=== PATIENT | female | born 1985 | race Caucasian/White ===

== ENCOUNTER 2018-02-02 20:29 | Outpatient (CLI) | payer OTHER, SELFPAY ==
[2018-02-02 21:20] VITALS: BMI 27.8
[2018-02-02 21:42] LABS: Mucous, Urine 0 SEEN /hpf (<or=2+)
[2018-02-02 21:43] LABS: Color, Urine Yellow (Yellow); Glucose, Dipstick Normal (Normal); Ketone-Dipstick Negative (Negative); Leukocyte Esterase-Dipstick 25 /ul (Negative); Nitrite-Dipstick Negative (Negative); Occult Blood-Urine 250 /ul (Negative); Protein-Dipstick Negative (Negative); Urine Bilirubin Dipstick Negative (Negative); Urine Clarity Clear (Clear); Urine Urobilinogen Normal (Normal)
[2018-02-02 21:50] LABS: Bacteria 1+ /hpf (None Seen); Red Blood Cells-Urine 25-50 SEEN /hpf (0-5); Squamous Epithelial Cells - UA 0-5 SEEN /hpf (5-10); White Blood Cells 0-5 SEEN /hpf (0-5)
--- NOTE | 2018-02-03 16:53 | OB.TRI.NOTE ---
History of Present Illness Date of Service: 02/02/18 Was patient seen by the physician?: Yes Reason For Visit: R/O LABOR Date of Service: 02/02/18 Final ARACELI: 05/13/18 Final ARACELI Source: US <20 weeks Gestational age: 25 Weeks and 6 Days History of Present Illness: 33yo with c/o intermittent lower abdominal tightening and spotting with red blood in underwear and on wiping x 1. She has h/o cervical incompetence with 21 week loss in her first and has required a cerclage for all subsequent pregnancies including this one. Her prophylactic cerclage placement was uncomplicated. She had light bleeding for a short time after placement, but none since 14wga. She denies fever, chills, dysuria, hematuria, frequency, back pain, vaginal itching/burning/odor or discharge, leaking of fluid. + FM. She otherwise feels well. Denies coughing, constipation or straining, or recent trauma, fall or accident. She relates she often starts [place] at 18-20wga in prior pregnancies. Home Medications Medication Instructions Recorded Chloraphil 5 ml PO DAILY 11/01/17 Multivitamin [Multiple Vitamins] 1 each PO DAILY 11/01/17 [place]-3/Dha/Epa/Fish Oil [[place] 3 1 each PO DAILY 11/01/17 500 Softgel] [place] 17 gm PO DAILY 11/01/17 Allergies No Known Allergies Allergy (Verified 02/02/18 21:55) - Pertinent Past Medical History Pertinent Past Medical History: 21w - , demise, cervical insufficiency 3 FT with cerclage Physical Exam Vitals: AVSS General: Alert, Oriented x3, Cooperative, No apparent distress Lungs: Normal air movement Abdomen: Soft, Non Tender, Non-Distended, Gravid Extremities:: No edema Estimated gestational size: Appropriate for gestational size Cervix Dilation (cm): 0 - by speculum exam NST - FHR Rate Baby A Baseline: 140 Variability:: Moderate Accelerations:: 10 x 10 Decelerations:: Variable NST Reactive:: Appropriate for gestational age FHR Category:: Category I Uterine Activity:: 0/10 Impression/Plan Spotting complicating , second trimester -Speculum exam with cerclage suture noted rubbing ectropion and induced small amount of bleeding. No active bleed, no blood from os and os appeared close. -U/A negative for infection -D/C home
--- NOTE | 2018-02-03 17:07 | OB.TRI.HP_ITS ---
History of Present Illness Date of Service: 02/02/18 Was patient seen by the physician?: Yes Reason For Visit: R/O LABOR Date of Service: 02/02/18 Final ARACELI: 05/13/18 Final ARACELI Source: US <20 weeks Gestational age: 25 Weeks and 6 Days History of Present Illness: 33yo with c/o intermittent lower abdominal tightening and spotting with red blood in underwear and on wiping x 1. She has h/o cervical incompetence with 21 week loss in her first and has required a cerclage for all subsequent pregnancies including this one. Her prophylactic cerclage placement was uncomplicated. She had light bleeding for a short time after placement, but none since 14wga. She denies fever, chills, dysuria, hematuria, frequency, back pain, vaginal itching/burning/odor or discharge, leaking of fluid. + FM. She otherwise feels well. Denies coughing, constipation or straining, or recent trauma, fall or accident. She relates she often starts [place] at 18- 20wga in prior pregnancies. Home Medications Medication Instructions Recorded Chloraphil 5 ml PO DAILY 11/01/17 Multivitamin [Multiple Vitamins] 1 each PO DAILY 11/01/17 [place]-3/Dha/Epa/Fish Oil [[place] 3 1 each PO DAILY 11/01/17 500 Softgel] [place] 17 gm PO DAILY 11/01/17 Allergies No Known Allergies Allergy (Verified 02/02/18 21:55) - Pertinent Past Medical History Pertinent Past Medical History: 21w - , demise, cervical insufficiency 3 FT with cerclage Physical Exam Vitals: AVSS General: Alert, Oriented x3, Cooperative, No apparent distress Lungs: Normal air movement Abdomen: Soft, Non Tender, Non-Distended, Gravid Extremities:: No edema Estimated gestational size: Appropriate for gestational size Cervix Dilation (cm): 0 - by speculum exam NST - FHR Rate Baby A Baseline: 140 Variability:: Moderate Accelerations:: 10 x 10 Decelerations:: Variable NST Reactive:: Appropriate for gestational age FHR Category:: Category I Uterine Activity:: 0/10 Impression/Plan Spotting complicating , second trimester -Speculum exam with cerclage suture noted rubbing ectropion and induced small amount of bleeding. No active bleed, no blood from os and os appeared close. -U/A negative for infection -D/C home
== END 2018-02-02 22:30 | disposition home or self-care (01) ==
LOC: WPOUT 21:19 → WP 21:20
PROVIDERS: Visit Provider Obstetrics & Gynecology
DX: O26.852 Spotting complicating pregnancy, second trimester (principal); Z3A.25 25 weeks gestation of pregnancy
CPT/HCPCS: 59025; 59050; 81001; 87086; 87088; 99218; G0378

== ENCOUNTER → 2018-04-17 15:25 | Outpatient (CLI) | payer OTHER, SELFPAY ==
[2018-04-18 13:07] LABS: Group B Strep DNA By PCR POSITIVE (Negative); Probe Check PASS
== END ==
PROVIDERS: Visit Provider Obstetrics & Gynecology
DX: Z36.85 Encounter for antenatal screening for Streptococcus B (principal)
CPT/HCPCS: 87653

== ENCOUNTER 2018-05-07 09:05 | Inpatient (IN) | payer SELFPAY ==
--- NOTE | 2018-05-07 09:05 | DT_ITS ---
This patient was seen during an EMR downtime April 30, 2018 - May 07, 2018. This patient may have a combination of paper and electronic documentation or all paper documentation. All documentation is viewable within the e-chart portion of [email or web address] for each patient visit.
[2018-05-07 09:32] VITALS: BMI 31.4
[2018-05-07 10:10] LABS: Hematocrit 34.1 % (37-47); Hemoglobin 11.6 g/dl (12.0-15.0); Mean Corpuscular Hgb 30.8 pg (27.0-32.0); Mean Corpuscular Volume 90.5 fL (81-99); Mean Platelet Vol. 9.8 fl (6.2-12.0); Platelet Count 231 K/mm3 (150-450); RBC Distribution Width CV 13.6 % (11.6-14.6); RBC Distribution Width SD 44.5 fl (35.1-43.9); Red Blood Count 3.77 M/mm3 (4.2-5.4); White Blood Count 9.7 K/mm3 (4.4-11.0)
[2018-05-07 10:11] LABS: Scan Indicated on CBC? Y/N NO
[2018-05-07] MEDS: Lactated Ringers 1,000 ML 50 ML IV ×2 (10:32→13:42)
[2018-05-07] MEDS: Oxytocin 30 units/NS 500 ml 30 UNITS/500 ML IV.SOLN IV (11:23)
[2018-05-07] MEDS: Oxytocin 30 units/NS 500 ml 30 UNITS/500 ML IV.SOLN 334 UNITS IV (14:35)
[2018-05-07] MEDS: Oxytocin 30 units/NS 500 ml 30 UNITS/500 ML IV.SOLN 167 UNITS IV (15:05)
[2018-05-07] MEDS: 0.9% Saline Lock 10 ML Syringe IV (16:15)
[2018-05-07] MEDS: Ibuprofen 600 MG Tablet PO (18:41)
[2018-05-07 19:25] VITALS: BP 111/64; PULSE 84; RESP 16; TEMP 37.1; O2SAT 98
[2018-05-08 00:13] VITALS: BP 95/61; PULSE 73; RESP 16; TEMP 37; O2SAT 99
[2018-05-08 04:05] VITALS: BP 109/75; PULSE 67; RESP 16; TEMP 36.5; O2SAT 100
[2018-05-08 08:40] VITALS: BP 96/72; PULSE 83; RESP 18; TEMP 36.7; O2SAT 97
[2018-05-08 11:28] VITALS: BP 110/74; PULSE 79; RESP 16; TEMP 36.8; O2SAT 97
[2018-05-08 16:00] VITALS: BP 99/66; PULSE 78; RESP 16; TEMP 36.7; O2SAT 100
[2018-05-08 20:25] VITALS: BP 123/77; PULSE 84; RESP 16; TEMP 36.2
[2018-05-09] MEDS: Ibuprofen 600 MG Tablet PO (00:17)
[2018-05-09 01:20] VITALS: BP 101/67; PULSE 79; RESP 18; TEMP 36.7
[2018-05-09 08:38] VITALS: BP 111/73; PULSE 71; RESP 16; TEMP 36.6; O2SAT 99
== END 2018-05-09 10:10 | disposition home or self-care (01) | DRG 775 ==
PROVIDERS: Admitting Provider Obstetrics & Gynecology; Family Provider Family Medicine; PCP Family Medicine; Visit Provider Obstetrics & Gynecology
DX: O80 Encounter for full-term uncomplicated delivery (principal); Z3A.39 39 weeks gestation of pregnancy; Z37.0 Single live birth
CPT/HCPCS: 59050; 85027; 86850; 86900; 99218; J7120; A4216; G0378